=== PATIENT | female | born 1995 | race African-American/Black ===

== ENCOUNTER 2016-07-06 15:44 | Outpatient (CLI) | payer OTHER ==
--- NOTE | 2016-07-06 16:32 | DIAGNOSTIC IMAGING REPORT ---
PROCEDURE: XR CHEST 2 VIEW INDICATION: POSITIVE PPD TECHNIQUE: PA and lateral views. COMPARISON: Chest 12/31/2014 FINDINGS: Lungs are clear. Heart and mediastinum are normal. Thorax is normal. IMPRESSION: 1. Negative chest.
== END 2016-07-06 23:00 ==
LOC: LABML S 15:44
DX: R76.11 Nonspecific reaction to tuberculin skin test without active tuberculosis (principal)